=== PATIENT | female | born 1995 | race Two or more races ===

== ENCOUNTER 2017-02-06 12:36 | Emergency (ER) | payer OTHER ==
[2017-02-06] MEDS ORDERED: MAALOX/LIDO2%VISC/SIMETHICONE 40 ML BOT ONE (13:23)
[2017-02-06] MEDS ORDERED: ONDANSETRON 4 MG/2ML 2 ML VIAL ONE (13:23)
[2017-02-06 13:34] LABS: ABSOLUTE NEUTROPHIL COUNT 4.7 K/mm3 (1.8-7.7); BASO % 0.3 % (0.2-1.0); EOS # 0.1 (0.0-0.5); EOS % 1.3 % (0.9-2.9); HEMATOCRIT 39.8 % (37.0-47.0); IMM NEUT% 0.3 % (0-1); LYMPH # 1.7 (1.0-4.8); LYMPH % 24.3 % (15-45); MEAN CELL VOLUME 86.5 fl (81.0-99.0); MEAN CORPUSCULAR HEMOGLOBIN 28.3 pg (27.0-31.0); MEAN CORPUSCULAR HGB CONC 32.7 g/dl (33.0-37.0); MEAN PLATELET VOLUME 10.8 fl (7.4-10.4); MONO # 0.4 (0.0-0.8); MONO % 5.3 % (4-12); NEUT % 68.5 % (43-75); PLATELET COUNT 246 K/mm3 (130-400); RED CELL DISTRIBUTION WIDTH 13.4 % (11.5-14.5)
[2017-02-06 13:44] LABS: ALB/GLOB RATIO 1.6 (>1.0); ALBUMIN 4.4 gm/dL (3.5-5.7); CALCIUM 9.3 mg/dL (8.6-10.3)
[2017-02-06] MEDS ORDERED: POTASSIUM CHLORIDE 20 MEQ TAB.PRT.SR ONE (13:52)
--- NOTE | 2017-02-06 14:31 | US ---
LIMITED ABDOMINAL ULTRASOUND HISTORY: Right upper quadrant pain. Limited sonography of the right upper quadrant performed. FINDINGS: GALLBLADDER LENGTH: 7.2 cm. GALLBLADDER WALL THICKNESS: 2 mm. GALLBLADDER CONTENT: No stones or sludge identified. SONOGRAPHIC GONZALEZ'S SIGN: Not elicited. COMMON BILE DUCT CALIBER: 2 mm. REGIONAL FREE FLUID: None. IMPRESSION: Normal sonographic appearance of the gallbladder. No findings of cholelithiasis, wall thickening, or biliary dilatation. Results were electronically transmitted to the electronic medical record at 02/06/17 at 1427 hours.
[2017-02-06 15:23] LABS: URINE BILIRUBIN NEGATIVE (NEGATIVE); URINE BLOOD NEGATIVE (NEGATIVE); URINE GLUCOSE (UA) NEGATIVE (NEGATIVE); URINE LEUKOCYTE ESTERASE 2+ (NEGATIVE); URINE NITRITE NEGATIVE (NEGATIVE); URINE PROTEIN NEGATIVE (NEGATIVE); URINE UROBILINOGEN NORMAL (0-1 mg/dl)
[2017-02-06 15:24] LABS: HCG,QUALITATIVE URINE NEGATIVE
[2017-02-06 15:25] LABS: URINE APPEARANCE SL CLOUDY; URINE COLOR YELLOW
[2017-02-06 15:34] LABS: URINE BACTERIA FEW; URINE MUCUS 2+; URINE RBC 0-1 /hpf
[2017-02-08 13:38] LABS: CHLAMYDIA BD Negative (Negative); N.GONORRHOEAE BD Negative (Negative); SOURCE Urine (())
== END 2017-02-06 16:23 | disposition home or self-care (01) ==
LOC: ED 12:36
DX: R10.9 Unspecified abdominal pain (principal); R11.0 Nausea
CPT/HCPCS: 87491; 83690; 87591; 81025; 85025; 80053; 81001; 76705; 99283 ×2; 96374; A9270 ×2; J2405